=== PATIENT | female | born 1945 | race African-American/Black ===

== ENCOUNTER 2016-09-24 15:14 | Inpatient (IN) ==
--- NOTE | 2016-09-24 15:46 | CT Report ---
History is syncope Comparison 11/12/2012 The ventricles are normal in size. No acute intracranial hemorrhage, mass effect, or evidence of acute cortical stroke seen. Impression: No acute intracranial pathology seen. The CT exam was performed using one or more of the following dose reduction techniques: Automated exposure control, adjustment of the mA and/or kV according to patient size, or use of iterative reconstruction technique. PROCEDURE INTERPRETED AT [facility] DEPARTMENT OF RADIOLOGY Final Report Signed by: Dr. Annie Almodovar
--- NOTE | 2016-09-24 15:51 | EKG Report ---
Stationary ECG Study [facility] ER Test Date: 09/24/2016 3:50:30 PM Pat Name: ADITI RAMON Department: Room: Gender: F Feed Crusher: : 1945 Requested by: Brian Madrigal Order Number: [id number] Chevy MD: NORMA ARMANDO Intervals [place] Rate: 63 P: 71 WV: 168 QRS: 29 QRSD: 90 T: 25 QT: 409 QTc: 417 Interpretive Statements SINUS RHYTHM POSSIBLE RIGHT VENTRICULAR CONDUCTION DELAY Electronically Signed On 09-25-16 12:21:43 CDT by NORMA ARMANDO [email or web address]
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
--- NOTE | 2016-09-24 16:22 | XRay Report ---
Exam: XR chest 2V Indication: Shortness of breath Comparison study: 09/29/2015 Findings: The heart, mediastinum and bony structures are stable from prior. Minimal punctate calcified granulomatous nodular densities are noted bilaterally, essentially unchanged from prior. There is no focal consolidation, pneumothorax or pleural effusion identified. Impression: No acute cardiopulmonary process. No significant change from prior. PROCEDURE INTERPRETED AT [facility] DEPARTMENT OF RADIOLOGY Final Report Signed by: Rafael Torres
[2016-09-24 16:25] LABS: Basophils % 0.6 % (0.0-0.8); Eosinophils # 0.5 10*3/uL (0.0-0.87); Eosinophils % 7.3 % (0.00-10.9); Hematocrit 34.7 VOL% (35.7-47.0); Hemoglobin 10.6 GM/DL (12.0-16.0); Immature Granulocytes % 0.5 %; Immature Granulocytes Absolute 0.03 #; Lymphocytes # 1.9 10*3/uL (1.4-4.0); Lymphocytes % 30.7 % (21.3-54.2); Mean Corpuscular HGB Conc 30.5 GM/DL (32-36); Mean Corpuscular Hemoglobin 26 PG (27-34); Mean Corpuscular Volume 85.3 FL (87-102); Mean Platelet Volume 12.1 FL (9.6-12.0); Monocytes # 0.4 10*3/uL (0.11-0.8); Monocytes % 6.3 % (1.7-12.7); Neutrophils # 3.4 10*3/uL (1.4-7.4); Neutrophils % 54.6 % (38.7-73.9); Platelet Count 153 T/CUMM (130-400); Red Blood Count 4.07 MC/CUMM (3.8-5.5); White Blood Count 6.3 T/CUMM (4-12)
[2016-09-24 16:36] LABS: PT Patient Result 10.4 SECS
[2016-09-24 16:39] LABS: Apearance,Urine CLEAR (Clear); Bilirubin,Urine Negative (Negative); Blood, Urine Negative (Negative); Glucose,Urine (UA) Negative (Negative); Ketones,Urine Negative (Negative); Mucus,Urine Occasional /LPF (Occasional); Nitrite,Urine Negative (Negative); Protein,Urine Negative; RBC,Urine <1 /HPF (0-4); Squamous Epithelial Cell,Urine Occasional /HPF (0-10); Urine Color Straw (Yellow); Urine Specific Gravity 1.004 (1.001-1.035); Urine Urobilinogen < 2.0 EU/DL (0.2-1.0); WBC,Urine 3 /HPF (0-6)
[2016-09-24 17:02] LABS: Alanine Aminotransferase 27 U/L (13-56); Albumin 3.8 G/DL (3.4-5.0); Alkaline Phosphatase 86 U/L (45-117); Aspartate Amino Transferase 26 U/L (0-37); Blood Urea Nitrogen 24 MG/DL (7-18); Glucose 113 MG/DL (74-106); Osmolality,Calculated 285.3 MOS/KG (273-304); Potassium 4.2 MMOL/L (3.5-5.1); Sodium 141 MMOL/L (136-145); Total Protein 7.9 G/DL (6.4-8.3); Troponin I Only < 0.015 NG/ML (0.00-0.045)
[2016-09-24] MEDS ORDERED: SODIUM CHLORIDE 0.9% 500 ML IV STA (17:09)
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
[2016-09-24] MEDS ORDERED: ZALEPLON 5 MG CAPSULE PO PRN (18:30)
[2016-09-24] MEDS ORDERED: ONDANSETRON 4 MG/2 ML VIAL IV PRN (18:30)
[2016-09-24 18:59] LABS: Risk Ratio 3.44; VLDL CHOLESTEROL 34.4 MG/DL
[2016-09-24] MEDS: ENOXAPARIN 40 MG/0.4 ML SYRINGE SUBCUT SCH (21:53)
[2016-09-24] MEDS: SODIUM CHLORIDE 0.9% 1,000 ML IV SCH (21:53)
[2016-09-24] MEDS: METOPROLOL TARTRATE 25 MG TABLET PO SCH (21:54)
[2016-09-24] MEDS: DICLOFENAC 1% GEL 100 GM TUBE TOP SCH (21:54)
[2016-09-24] MEDS: PREGABALIN 50 MG CAPSULE PO SCH (21:55)
[2016-09-24] MEDS: cefTRIAXone 1,000 MG in SODIUM CHLORIDE 0.9% 100 ML IV SCH (21:55)
[2016-09-24 22:48] LABS: CKMB % 1.8 %; Troponin I Only < 0.015 NG/ML (0.00-0.045)
[2016-09-25 01:17] LABS: Basophils % 0.5 % (0.0-0.8); Eosinophils # 0.4 10*3/uL (0.0-0.87); Eosinophils % 6.7 % (0.00-10.9); Hematocrit 29.5 VOL% (35.7-47.0); Hemoglobin 9.3 GM/DL (12.0-16.0); Immature Granulocytes % 0.3 %; Immature Granulocytes Absolute 0.02 #; Lymphocytes # 2.1 10*3/uL (1.4-4.0); Mean Corpuscular HGB Conc 31.5 GM/DL (32-36); Mean Corpuscular Hemoglobin 26 PG (27-34); Mean Corpuscular Volume 82.9 FL (87-102); Mean Platelet Volume 12.4 FL (9.6-12.0); Monocytes # 0.4 10*3/uL (0.11-0.8); Monocytes % 5.8 % (1.7-12.7); Neutrophils # 3.6 10*3/uL (1.4-7.4); Neutrophils % 54.7 % (38.7-73.9); Platelet Count 163 T/CUMM (130-400); Red Blood Count 3.56 MC/CUMM (3.8-5.5); Red Cell Distribution Width 14.1 % (9.3-17.3); White Blood Count 6.6 T/CUMM (4-12)
[2016-09-25 01:43] LABS: Calcium 9.3 MG/DL (8.5-10.1); Potassium 3.8 MMOL/L (3.5-5.1)
[2016-09-25 02:31] LABS: CKMB % 1.6 %; Troponin I Only < 0.015 NG/ML (0.00-0.045)
--- NOTE | 2016-09-25 07:47 | Ultrasound Report ---
Referring physician: Yifan Crawford MD Exam: Carotid ultrasound Date: September 25, 2016 Comparison: None Reason: Syncope Technique: Duplex scan of the carotid arteries was performed using B-Mode/grayscale imaging and Doppler spectral analysis and color flow. Ultrasound images were captured and stored. Findings: There is mild to moderate calcified plaque at the carotid bifurcations bilaterally. The right ICA measures 0.65 cm in diameter, and the left ICA measures 0.52 cm in diameter. The peak systolic velocities are as follows: Right CCA: 80 cm/s Right proximal ICA: 70 cm/s Right distal ICA: 71 cm/s Right ECA: 74 cm/s Left CCA: 64 cm/s Left proximal ICA: 75 cm/s Left distal ICA: 67 cm/s Left ECA: 60 cm/s The peak systolic ICA/CCA velocity ratios are as follows: 0.9 on the right and 1.2 on the left. Antegrade flow is present within both vertebral arteries. Impression: 1. Less than 50% stenosis of both cervical internal carotid arteries. 2. The Society of Radiologists in Ultrasound consensus conference criteria was used. The Ultrasound images were captured and stored. PROCEDURE INTERPRETED AT [facility] DEPARTMENT OF RADIOLOGY Final Report Signed by: Dr. Kevin Harding
[2016-09-25] MEDS: hydroCHLOROthiazide 25 MG TABLET PO SCH (09:18)
[2016-09-25] MEDS: ASCORBIC ACID 500 MG TABLET PO SCH (09:18)
[2016-09-25] MEDS: METOPROLOL TARTRATE 25 MG TABLET PO SCH ×2 (09:18→23:07)
[2016-09-25] MEDS: MAGNESIUM GLUCONATE 500 MG TABLET PO SCH (09:18)
[2016-09-25] MEDS: ASPIRIN EC 81 MG TABLET PO SCH (09:18)
[2016-09-25] MEDS: PANTOPRAZOLE 40 MG TABLET PO SCH (09:19)
[2016-09-25] MEDS: OMEGA 3 ACID ETHYL ESTERS 1 GM CAPSULE PO SCH (09:19)
[2016-09-25] MEDS: CHOLECALCIFEROL 1,000 UNIT TABLET PO SCH (09:19)
[2016-09-25] MEDS: PREGABALIN 50 MG CAPSULE PO SCH ×3 (09:19→23:07)
[2016-09-25] MEDS: LOSARTAN 50 MG TABLET PO SCH (09:19)
[2016-09-25] MEDS: DICLOFENAC 1% GEL 100 GM TUBE TOP SCH ×3 (09:24→23:08)
[2016-09-25] MEDS: SODIUM CHLORIDE 0.9% 1,000 ML IV SCH (14:57)
[2016-09-25] MEDS: diphenhydrAMINE CAP 25 MG CAPSULE PO PRN (15:12)
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
--- NOTE | 2016-09-25 16:23 | Hospitalist Progress Note ---
Assessment and Plan (1) Syncope Status: Acute Current Visit: Yes (2) Hypertension Status: Chronic Current Visit: Yes (3) History of syncopal episodes Status: Acute Current Visit: Yes Hospitalist: Subjective Interval history: No acute events overnight. Carotid dopplers with less than 50% stenosis. Patient reports that she has worn a heart monitor for a month before to work-up these episodes. This puts a cardiac cause further down on my differential. Have consulted neurology for assistance with further work-up. Will defer to them for need for EEG. Exam - Constitutional Vitals: Period Temp Pulse Resp BP Sys/Santos Pulse Ox Last 24 Hr 97.1 F-98.5 F 56-67 16-20 118-166/57-91 96-100 General appearance: over weight - Head Head exam: Present: atraumatic - Eye Eye exam: Present: EOMI Pupils: Present: LALI - ENT ENT exam: Present: normal exam - Neck Neck exam: Present: normal inspection - Respiratory Respiratory exam: Present: clear to auscultation bilaterally. Absent: rhonchi, wheezes - Cardiovascular Cardiovascular exam: Present: regular rate and rhythm - GI/Abdominal GI/Abdominal exam: Present: normal bowel sounds, soft. Absent: tenderness, rebound - Extremities Exam Extremities exam: Present: normal inspection - Back Exam Back exam: Present: normal inspection - Neurological Exam Neurological exam: Present: alert, oriented X3 - Psychiatric Psychiatric exam: Present: normal affect, normal mood - Skin Skin exam: Present: warm, intact Results - Labs CBC & BMP: 09/25/16 00:56 09/25/16 00:56
[2016-09-25] MEDS: cefTRIAXone 1,000 MG in SODIUM CHLORIDE 0.9% 100 ML IV SCH (23:07)
[2016-09-25] MEDS: ENOXAPARIN 40 MG/0.4 ML SYRINGE SUBCUT SCH (23:07)
[2016-09-26] MEDS: SODIUM CHLORIDE 0.9% 1,000 ML IV SCH ×2 (06:00→18:42)
[2016-09-26 07:34] LABS: Basophils % 0.6 % (0.0-0.8); Eosinophils # 0.4 10*3/uL (0.0-0.87); Hemoglobin 8.8 GM/DL (12.0-16.0); Immature Granulocytes % 0.4 %; Immature Granulocytes Absolute 0.02 #; Lymphocytes # 1.8 10*3/uL (1.4-4.0); Lymphocytes % 38.7 % (21.3-54.2); Mean Corpuscular HGB Conc 30.3 GM/DL (32-36); Mean Corpuscular Hemoglobin 26 PG (27-34); Mean Corpuscular Volume 84.8 FL (87-102); Mean Platelet Volume 12.1 FL (9.6-12.0); Monocytes # 0.4 10*3/uL (0.11-0.8); Monocytes % 7.4 % (1.7-12.7); Neutrophils # 2.1 10*3/uL (1.4-7.4); Neutrophils % 43.9 % (38.7-73.9); Platelet Count 132 T/CUMM (130-400); Red Blood Count 3.42 MC/CUMM (3.8-5.5); Red Cell Distribution Width 14.1 % (9.3-17.3); White Blood Count 4.8 T/CUMM (4-12)
[2016-09-26 07:59] LABS: Calcium 9.2 MG/DL (8.5-10.1); Magnesium 1.8 MG/DL (1.8-2.4); Osmolality,Calculated 290.7 MOS/KG (273-304); Potassium 4.3 MMOL/L (3.5-5.1)
[2016-09-26 08:13] LABS: Folate 13.7 NG/ML (5.4-24.0)
[2016-09-26] MEDS: PANTOPRAZOLE 40 MG TABLET PO SCH (08:55)
[2016-09-26] MEDS: ASCORBIC ACID 500 MG TABLET PO SCH (08:55)
[2016-09-26] MEDS: hydroCHLOROthiazide 25 MG TABLET PO SCH (08:55)
[2016-09-26] MEDS: OMEGA 3 ACID ETHYL ESTERS 1 GM CAPSULE PO SCH (08:55)
[2016-09-26] MEDS: ASPIRIN EC 81 MG TABLET PO SCH (08:55)
[2016-09-26] MEDS: CHOLECALCIFEROL 1,000 UNIT TABLET PO SCH (08:55)
[2016-09-26] MEDS: METOPROLOL TARTRATE 25 MG TABLET PO SCH ×2 (08:55→20:12)
[2016-09-26] MEDS: MAGNESIUM GLUCONATE 500 MG TABLET PO SCH (08:55)
[2016-09-26] MEDS: LOSARTAN 50 MG TABLET PO SCH (08:55)
[2016-09-26] MEDS: PREGABALIN 50 MG CAPSULE PO SCH ×3 (08:55→20:12)
[2016-09-26] MEDS: DICLOFENAC 1% GEL 100 GM TUBE TOP SCH ×3 (08:56→20:14)
--- NOTE | 2016-09-26 10:28 | Cardiology Progress Note ---
Sherry Haskins April RN, am scribing for, and in the presence of, Greg Truong MD 10:28. Assessment and Plan (1) Syncope Status: Acute Current Visit: Yes (2) History of fibromyalgia Status: Chronic Current Visit: Yes (3) Hypertension Status: Chronic Current Visit: Yes Cardiology - PN: Subj Interval history: Ms. Lentz is seen resting in bed in no acute distress. She denies chest pain, shortness of breath, palpitations, syncope, or feelings of near syncope. She does report having some dizziness when getting up and while lying in bed. Blood pressures been stable during the night, current pressure 140/74. Heart rates have been in the 50s throughout the night. Neurology has been consulted to see the patient. We are awaiting neurology's input. She may need a linq device. If she has nothing definable by neurology than the link device likely will be the next step. Exam (Progress Note) - Constitutional Vitals: Period Temp Pulse Resp BP Sys/Santos Pulse Ox Last 24 Hr 97.0 F-98.4 F 51-60 18-20 126-157/64-79 96-100 General appearance: no acute distress, over weight - Head Head exam: Absent: abrasion, hematoma - Eye Eye exam: Absent: periorbital swelling, laceration to eyelids - Respiratory Respiratory exam: Present: clear to auscultation bilaterally. Absent: accessory muscle use, chest wall tenderness - Cardiovascular Cardiovascular exam: Present: bradycardia, regular rate and rhythm - GI/Abdominal GI/Abdominal exam: Present: normal bowel sounds, soft. Absent: distended, tenderness - Extremities Exam Extremities exam: Absent: edema - Neurological Exam Neurological exam: Present: alert, oriented X3 - Psychiatric Psychiatric exam: Present: normal affect, normal mood - Skin Skin exam: Present: warm, dry Result/EKG - Labs CBC & BMP: 09/26/16 06:15 09/26/16 06:15 Lab Results: I have reviewed the past 24 hour labs Labs: Laboratory Results - last 24 hr 09/25/16 09/25/16 09/25/16 08:11 12:26 15:26 WBC RBC Hgb Hct MCV MCH MCHC RDW Plt Count MPV Neut % (Auto) Lymph % (Auto) [place] % (Auto) Eos % (Auto) Baso % (Auto) Neut # (Auto) Lymph # (Auto) [place] # (Auto) Eos # (Auto) Baso # (Auto) Immature Gran % Nucleated RBC % Immature Gran # Nucleated RBCs # Sodium Potassium Chloride Carbon Dioxide Anion Gap BUN Creatinine GFR Calculation BUN/Creatinine Ratio Glucose POC Glucose 92 114 H 113 H Calculated Osmolality Calcium Magnesium 09/26/16 09/26/16 09/26/16 06:15 06:15 07:18 WBC 4.8 RBC 3.42 L Hgb 8.8 L Hct 29.0 L MCV 84.8 L MCH 26 L MCHC 30.3 L RDW 14.1 Plt Count 132 MPV 12.1 H Neut % (Auto) 43.9 Lymph % (Auto) 38.7 [place] % (Auto) 7.4 Eos % (Auto) 9.0 Baso % (Auto) 0.6 Neut # (Auto) 2.1 Lymph # (Auto) 1.8 [place] # (Auto) 0.4 Eos # (Auto) 0.4 Baso # (Auto) 0.0 Immature Gran % 0.4 Nucleated RBC % 0.0 Immature Gran # 0.02 Nucleated RBCs # 0.00 Sodium 145 Potassium 4.3 Chloride 110 H Carbon Dioxide 25 Anion Gap 14.3 BUN 24 H Creatinine 1.40 H GFR Calculation 53 BUN/Creatinine Ratio 17.00 Glucose 88 POC Glucose 109 H Calculated Osmolality 290.7 Calcium 9.2 Magnesium 1.8 Alexi Haskins Wesley, MD, personally performed the services described in this documentation, ascribed by Gerri Powell RN in my presence, and it is both accurate and complete .
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
--- NOTE | 2016-09-26 16:13 | Hospitalist Progress Note ---
Assessment and Plan (1) Syncope Status: Acute Current Visit: Yes (2) Hypertension Status: Chronic Current Visit: Yes (3) History of syncopal episodes Status: Acute Current Visit: Yes Hospitalist: Subjective Interval history: No acute events overnight. Evaluated by neurology, suspect seizure. MRI and EEG. Starting trileptal. Thanks for the assistance. Exam - Constitutional Vitals: Period Temp Pulse Resp BP Sys/Santos Pulse Ox Last 24 Hr 97.0 F-98.7 F 51-66 18-19 126-163/67-81 97-100 General appearance: over weight - Head Head exam: Present: normocephalic, atraumatic - Eye Eye exam: Present: EOMI Pupils: Present: LALI - ENT ENT exam: Present: normal exam - Neck Neck exam: Present: normal inspection - Respiratory Respiratory exam: Present: clear to auscultation bilaterally. Absent: rhonchi, wheezes - Cardiovascular Cardiovascular exam: Present: regular rate and rhythm - GI/Abdominal GI/Abdominal exam: Present: normal bowel sounds, soft. Absent: tenderness, rebound - Extremities Exam Extremities exam: Present: normal inspection - Back Exam Back exam: Present: normal inspection - Neurological Exam Neurological exam: Present: alert, oriented X3 - Psychiatric Psychiatric exam: Present: normal affect, normal mood - Skin Skin exam: Present: warm, intact Results - Labs CBC & BMP: 09/26/16 06:15 09/26/16 06:15
[2016-09-26] MEDS: ENOXAPARIN 40 MG/0.4 ML SYRINGE SUBCUT SCH ×2 (20:11→20:17)
[2016-09-26] MEDS: OXcarbazepine 300 MG TABLET PO SCH (20:11)
[2016-09-26] MEDS: cefTRIAXone 1,000 MG in SODIUM CHLORIDE 0.9% 100 ML IV SCH (20:12)
[2016-09-27 07:07] LABS: Calcium 9.2 MG/DL (8.5-10.1); Magnesium 1.8 MG/DL (1.8-2.4); Osmolality,Calculated 295.4 MOS/KG (273-304); Potassium 4.3 MMOL/L (3.5-5.1)
[2016-09-27] MEDS ORDERED: TISSUE ADHESIVE 1 EACH APPLICATOR TOP ONE (09:08)
[2016-09-27] MEDS ORDERED: LIDOCAINE 1%/EPI INJ 20 ML VIAL ONE (09:09)
[2016-09-27] MEDS: hydroCHLOROthiazide 25 MG TABLET PO SCH (09:24)
[2016-09-27] MEDS: ASPIRIN EC 81 MG TABLET PO SCH (09:24)
[2016-09-27] MEDS: ASCORBIC ACID 500 MG TABLET PO SCH (09:24)
[2016-09-27] MEDS: PREGABALIN 50 MG CAPSULE PO SCH ×3 (09:24→20:33)
[2016-09-27] MEDS: PANTOPRAZOLE 40 MG TABLET PO SCH (09:24)
[2016-09-27] MEDS: MAGNESIUM GLUCONATE 500 MG TABLET PO SCH (09:25)
[2016-09-27] MEDS: OMEGA 3 ACID ETHYL ESTERS 1 GM CAPSULE PO SCH (09:25)
[2016-09-27] MEDS: METOPROLOL TARTRATE 25 MG TABLET PO SCH ×2 (09:26→20:33)
[2016-09-27] MEDS: LOSARTAN 50 MG TABLET PO SCH (09:26)
[2016-09-27] MEDS: CHOLECALCIFEROL 1,000 UNIT TABLET PO SCH (09:26)
[2016-09-27] MEDS: OXcarbazepine 300 MG TABLET PO SCH ×2 (09:26→20:34)
[2016-09-27] MEDS: DICLOFENAC 1% GEL 100 GM TUBE TOP SCH ×3 (09:29→20:38)
[2016-09-27] MEDS: SODIUM CHLORIDE 0.9% 1,000 ML IV SCH (09:32)
--- NOTE | 2016-09-27 10:19 | Hospitalist Progress Note ---
Assessment and Plan (1) Syncope Status: Acute Current Visit: Yes (2) Hypertension Status: Chronic Current Visit: Yes (3) History of syncopal episodes Status: Acute Current Visit: Yes Hospitalist: Subjective Interval history: Patient feeling well today. Plan for EEG and MRI today. Cardiology to place monitor. Hopeful for discharge soon. Exam - Constitutional Vitals: Period Temp Pulse Resp BP Sys/Santos Pulse Ox Last 24 Hr 97.3 F-99.8 F 57-66 16-19 129-163/63-85 96-100 General appearance: over weight - Head Head exam: Present: normocephalic, atraumatic - Eye Eye exam: Present: EOMI Pupils: Present: LALI - ENT ENT exam: Present: normal exam - Neck Neck exam: Present: normal inspection. Absent: tenderness - Respiratory Respiratory exam: Present: clear to auscultation bilaterally - Cardiovascular Cardiovascular exam: Present: regular rate and rhythm - GI/Abdominal GI/Abdominal exam: Present: normal bowel sounds, soft. Absent: tenderness, rebound - Extremities Exam Extremities exam: Present: normal inspection - Back Exam Back exam: Present: normal inspection - Neurological Exam Neurological exam: Present: alert ( ) - Psychiatric Psychiatric exam: Present: normal affect, normal mood - Skin Skin exam: Present: warm, intact Results - Labs CBC & BMP: 09/26/16 06:15 09/27/16 05:45
[2016-09-27] MEDS ORDERED: DIAZEPAM 5 MG TABLET PO ONE (11:26)
--- NOTE | 2016-09-27 13:09 | Magnetic Resonance Report ---
Referring physician: Yifan Crawford MD Exam: MRI brain without contrast Date: September 27, 2016 Comparison: CT brain September 24, 2016 Reason: Syncope, suspected seizures The patient is an inpatient who was admitted on September 24, 2016. Technique: MRI of the brain was performed without the use of contrast. Obtained images include sagittal T1, axial diffusion-weighted, axial FLAIR, axial T2, coronal T2, axial gradient and axial T1 sequences. A 1.2 Lilly open magnet was used. Of note, the patient refused IV contrast. Findings: There is mild generalized cerebral atrophy/volume loss, which is upper normal for age. A few small scattered areas of T2/FLAIR hyperintensity are seen within the cerebral white matter bilaterally. This is nonspecific but likely represents mild chronic microvascular ischemic change. Less common considerations include a demyelinating process, vasculitis or viral process. No hydrocephalus or midline shift is present. There is no evidence of recent intracranial hemorrhage, abnormal mass effect or an acute infarction. No abnormal extra-axial fluid collection is identified, and major vascular flow voids are visualized. No migrational anomaly is identified. The hippocampal regions appear symmetric and demonstrate normal signal.. The orbits, sella and brainstem are unremarkable. Degenerative change is noted at the cervical spine. There is minimal mucosal thickening within the frontal sinuses and mild mucosal thickening within the ethmoid air cells bilaterally. The mastoid air cells are clear. Impression: 1. No acute intracranial process is identified. 2. There are few small scattered areas of T2/FLAIR hyperintensity within the cerebral white matter bilaterally. This is nonspecific but likely represents mild chronic microvascular ischemic change. PROCEDURE INTERPRETED AT [facility] DEPARTMENT OF RADIOLOGY Final Report Signed by: Dr. Kevin Harding
--- NOTE | 2016-09-27 13:50 | Cardiology Operative Report ---
Date of Procedure:: 09/27/16 Pre-op diagnosis: Unexplained syncope Post-op diagnosis: same Procedure: The patient was prepped and draped in a sterile fashion and after oral sedation lidocaine was infiltrated into the anterior chest just left of the sternum. At this point incision was made into the subcutaneous tissues of the skin. The Linq device was inserted into the subcutaneous tissues and the incision was then closed using Dermabond. At this point testing was undertaken to determine whether the Linq device could adequately sense cardiac activity. After ascertaining that the Linq device could adequately sense cardiac activity the patient was allowed to awaken from sedation and when ambulatory was transferred from the outpatient area back to her hunt.. Surgeon / Physician: Greg Truong Estimated blood loss: minimal Specimens: none sent Condition: stable
--- NOTE | 2016-09-27 15:00 | Cardiology Progress Note ---
I, Gerri Powell RN, am scribing for, and in the presence of, Greg Truong MD 15:00. Assessment and Plan (1) Syncope Status: Acute Current Visit: Yes (2) History of fibromyalgia Status: Chronic Current Visit: Yes (3) Hypertension Status: Chronic Current Visit: Yes Cardiology - PN: Subj Interval history: Ms. Lentz is seen sitting up in bed eating breakfast in no acute distress. She denies chest pain, shortness of breath, dizziness, or syncope. She reports at one point yesterday afternoon she had an episode where she felt her heart was beating rapidly, but it only lasted for a few minutes and quit suddenly. She has had no further episodes of this. Vital signs were stable throughout the night. Dr. Travis saw the patient and scheduled her for an MRI of the brain and start her on Trileptal. We are holding patient n.p.o. for a LINQ device this afternoon. I have discussed in detail the particulars of this case and I have examined the patient and reviewed the patient's chart both current and old. I was directly involved in the patient's evaluation and management and I completely agree with Gerri Powell RN and oriented regarding this patient's evaluation and treatment plan. Exam (Progress Note) - Constitutional Vitals: Period Temp Pulse Resp BP Sys/Santos Pulse Ox Last 24 Hr 97.3 F-99.8 F 57-66 16-19 129-163/63-85 96-100 General appearance: no acute distress, over weight - Head Head exam: Absent: abrasion, hematoma - Eye Eye exam: Absent: periorbital swelling, laceration to eyelids - Neck Neck exam: Absent: tenderness - Respiratory Respiratory exam: Present: clear to auscultation bilaterally. Absent: accessory muscle use, chest wall tenderness - Cardiovascular Cardiovascular exam: Present: regular rate and rhythm - GI/Abdominal GI/Abdominal exam: Present: normal bowel sounds, soft. Absent: distended, tenderness - Extremities Exam Extremities exam: Absent: edema - Neurological Exam Neurological exam: Present: alert, oriented X3 - Psychiatric Psychiatric exam: Present: normal affect, normal mood - Skin Skin exam: Present: warm, dry Result/EKG - Labs CBC & BMP: 09/26/16 06:15 09/27/16 05:45 Lab Results: I have reviewed the past 24 hour labs Labs: Laboratory Results - last 24 hr 09/26/16 09/27/16 11:20 05:45 Sodium 147 H Potassium 4.3 Chloride 112 H Carbon Dioxide 25 Anion Gap 14.3 BUN 24 H Creatinine 1.50 H GFR Calculation 49 BUN/Creatinine Ratio 16.00 Glucose 103 POC Glucose 118 H Calculated Osmolality 295.4 Calcium 9.2 Magnesium 1.8 Alexi Haskins Wesley, MD, personally performed the services described in this documentation, ascribed by Gerri Powell RN in my presence, and it is both accurate and complete .
--- NOTE | 2016-09-27 15:07 | Neurology Progress Note ---
Neurology - PN : Subjective Interval history: Patient seems to be doing really well. MRI and EEG are both unremarkable. She is on Trileptal now. She has LINQ device placed by Dr. Truong. Exam (Progress Note) - Constitutional Vitals: Period Temp Pulse Resp BP Sys/Santos Pulse Ox Last 24 Hr 97.3 F-99.8 F 55-66 16-19 129-190/63-85 96-100 Exam: GENERAL: Patient is in no acute distress. NECK: Neck is supple. There is no JVD. No carotid bruits present. No thyroid masses. CVS: First and second heart sounds are normal. There is no S3 present. Regular rate and rhythm. RESPIRATORY: Lungs are clear to auscultation without any rales or rhonchi. ABDOMEN: Soft and non-tender. Bowel sounds are present. There is no hepatosplenomegaly. EXT: There is no palpable edema. Peripheral pulses are present. Skin: No rashes Central Nervous system: General: Alert, awake and Oriented x 3 Speech: Fluent Comprehension: Intact and normal Facial expressions: Normal Cranial Nerves: CN1/Olfactory: Normal CN II/ Optic: Normal, Visual Funk unreliable CN III, and : LALI & EOMI CN V: Normal & intact CN VII: face is symmetric CNVIII: Normal CN XI/X/XI/XII: Intact and Normal Motor: Bulk and Tone is normal. Strength in the right 5/5 Strength in the left 5/5 Sensory: Grossly intact for all the modalities of PP, LT and temp sense Reflexes: 1+ and symmetrical Cerebellar function: Normal finger to nose and heel to skaggs testing. Toes: Equivocal Gait: Normal heel to heel and toe to toe and tandem walk. Results - Labs CBC & BMP: 09/26/16 06:15 09/27/16 05:45 Assessment and Plan (1) Syncope Status: Acute Assessment and plan: continue Trileptal Follow-up in 4 week Sign off please call as needed Current Visit: Yes Specialty Discharge - Follow Up or Referrals Follow up with: Yao Travis MD [Physician] - 1 Month
[2016-09-27] MEDS: diphenhydrAMINE CAP 25 MG CAPSULE PO PRN (16:16)
--- NOTE | 2016-09-27 16:45 | Electroencephalogram ---
HISTORY: A 40-by[age]y-old patient with a history of possible seizures. INTRODUCTION: A digital EEG was performed using the standard 10/20 system of electrode placement wi th one channel of EKG monitoring. Photic stimulation is performed. DESCRIPTION OF RECORD: The background is well organized, consists of 8 to 8.5 hertz moderate amplit ude bilateral symmetrical alpha rhythm predominantly in the posterior head region that attenuates wi th eye opening. Photic stimulation elicits a driving response at all flash frequencies. Hyperventi lation was not performed. Drowsiness and sleep is not achieved. There are no focal, sharp wave, sp asha or wave activity seen. The heart rate is 60 beats per minute. IMPRESSION: NORMAL EEG DURING WAKEFULNESS. CLINICAL CORRELATION: No focal nor epileptiform features are seen. Normal EEG does not rule out th e diagnostic possibility of epilepsy. Clinical correlation is suggested.
[2016-09-27] MEDS: cefTRIAXone 1,000 MG in SODIUM CHLORIDE 0.9% 100 ML IV SCH (20:31)
[2016-09-27] MEDS: ENOXAPARIN 40 MG/0.4 ML SYRINGE SUBCUT SCH (20:38)
[2016-09-28] MEDS: SODIUM CHLORIDE 0.9% 1,000 ML IV SCH ×2 (05:25→08:42)
[2016-09-28] MEDS: hydroCHLOROthiazide 25 MG TABLET PO SCH (08:27)
[2016-09-28] MEDS: LOSARTAN 50 MG TABLET PO SCH (08:27)
[2016-09-28] MEDS: ASCORBIC ACID 500 MG TABLET PO SCH (08:27)
[2016-09-28] MEDS: PANTOPRAZOLE 40 MG TABLET PO SCH (08:27)
[2016-09-28] MEDS: OMEGA 3 ACID ETHYL ESTERS 1 GM CAPSULE PO SCH (08:27)
[2016-09-28] MEDS: MAGNESIUM GLUCONATE 500 MG TABLET PO SCH (08:27)
[2016-09-28] MEDS: ASPIRIN EC 81 MG TABLET PO SCH (08:27)
[2016-09-28] MEDS: METOPROLOL TARTRATE 25 MG TABLET PO SCH (08:27)
[2016-09-28] MEDS: CHOLECALCIFEROL 1,000 UNIT TABLET PO SCH (08:28)
[2016-09-28] MEDS: OXcarbazepine 300 MG TABLET PO SCH (08:28)
[2016-09-28] MEDS: PREGABALIN 50 MG CAPSULE PO SCH ×2 (08:28→14:20)
[2016-09-28] MEDS: DICLOFENAC 1% GEL 100 GM TUBE TOP SCH ×2 (08:30→14:21)
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
[2016-09-28 11:47] VITALS: BP 148/88
--- NOTE | 2016-10-05 07:18 | Physician Query Form ---
CLICK EDIT DOCUMENT TO SELECT QUERY ANSWER --> OK --> SIGN Meka Zuniga RN, CCDS Certified Clinical Business Center Representative W) [phone] (f) [phone] [email or web address] PROVIDERS: Make your selection(s) from the choices in EACH section by typing an "x" and enter comments in the comment section. Please use your independent medical judgment in providing your response. This request does not imply that any particular answer is desired or expected. CLINICAL INDICATORS: (Providers should not edit this section) The medical record indicates that the patient was admitted with history of "blackout episode", "Card Runner expressed concern for possible atypical seizures", "episode where she felt her heart was rapidly" and she would later have a Linq Device placed and be placed also on Trileptal. Based on the above, could you clarify the appropriate diagnosis, if significant , that supports the above abnormalities and additional evaluation, monitoring, and/or treatment rendered: ( x) Syncope due to suspected Seizure or arrhythmia's ( ) Syncope due to suspected seizure ( ) Syncope due to suspected arrhythmia's ( ) Syncope due to suspected ( ) Other, please specify: ( ) Clinically unable to determine COMMENTS: Use of terms such as suspected, likely, or probable (associated with a specific diagnosis that is being evaluated, monitored, or treated as if it exists) are acceptable and can be restated in the discharge summary if not ruled out. MTDD
== END 2016-09-28 15:06 | disposition home or self-care (01) | DRG 42 ==
LOC: N.ED 15:14 → N.EDINP 15:14 → N.5E 18:55
PROVIDERS: ADMIT Internal Medicine; ATTEND Internal Medicine